=== PATIENT | male | born 1975 | race Caucasian/White ===

== ENCOUNTER 2017-08-22 00:05 | Emergency (ER) | payer SELFPAY ==
[~2017-08-22] VITALS: Ht 182.9 cm; Wt 87.0 kg
[2017-08-22] MEDS ORDERED: IOHEXOL 350 MG/ML 10 ML VIAL (for RAD DIAG) IVCONTRAST ONE (00:06)
[2017-08-22 00:21] VITALS: BP 130/84; PULSE 73; RESP 18; TEMP 97.6; O2SAT 100
[2017-08-22 00:41] LABS: AUTOMATED NEUTROPHIL # 6.4 TH/MM3 (1.8-7.7); BASOPHIL % 0.2 % (0.0-2.0); EOSINOPHIL # 0.1 TH/MM3 (0-0.4); HEMATOCRIT 41.1 % (39.0-51.0); HEMOGLOBIN 14.5 GM/DL (13.0-17.0); LYMPH % 11.2 % (9.0-44.0); LYMPHOCYTE # 0.9 TH/MM3 (1.0-4.8); MEAN CELL VOLUME 90.7 FL (80.0-100.0); MEAN CORPUSCULAR HGB CONC 35.3 % (32.0-36.0); MEAN PLATELET VOLUME 8.9 FL (7.0-11.0); MONOCYTE # 0.7 TH/MM3 (0-0.9); NEUT % 78.6 % (16.0-70.0); PLATELET COUNT 174 TH/MM3 (150-450); RED BLOOD COUNT 4.53 MIL/MM3 (4.50-5.90); RED CELL DISTRIBUTION WIDTH 14.1 % (11.6-17.2); WHITE BLOOD COUNT 8.1 TH/MM3 (4.0-11.0)
--- NOTE | 2017-08-22 00:44 | RADRPT ---
EXAM DATE: 08/22/2017 12:36 AM EDT AGE/SEX: 41 years / Male INDICATIONS: Left rib pain from sneezing. CLINICAL DATA: This is the patient's initial encounter. Patient reports that signs and symptoms have been present for 1 day and indicates a pain score of 10/10. MEDICAL/SURGICAL HISTORY: None. None. COMPARISON: No prior exams available for comparison. FINDINGS: There is no evidence of displaced fracture. No destructive lesions or areas of periosteal thickening are seen. Expiratory view of the chest is negative for pneumothorax. The mediastinal structures ar e midline. CONCLUSION: Negative rib series. No evidence of pneumothorax. Electronically signed by: Javier Crystal MD 08/22/2017 12:43 AM EDT
[2017-08-22] MEDS ORDERED: KETOROLAC TROMETHAMINE 30 MG/ML (IVP) VIAL IV PUSH ONE (00:45)
[2017-08-22] MEDS ORDERED: MORPHINE SULFATE 4 MG/ML INJ IV PUSH ONE (00:45)
[2017-08-22 01:11] LABS: ALBUMIN 3.4 GM/DL (3.4-5.0); ALT (GPT) 52 U/L (12-78); AST (GOT) 28 U/L (15-37); BICARBONATE 27.2 MEQ/L (21.0-32.0); BLOOD UREA NITROGEN 15 MG/DL (7-18); CALCIUM 8.8 MG/DL (8.5-10.1); CHLORIDE 104 MEQ/L (98-107); CREATININE 0.84 MG/DL (0.60-1.30); GLOMERULAR FILTRATION RATE 102 ML/MIN (>89); GLUCOSE,RANDOM 99 MG/DL (74-106); SODIUM (NA) 139 MEQ/L (136-145)
[2017-08-22 01:15] LABS: ALKALINE PHOSPHATASE 73 U/L (45-117); TOTAL BILIRUBIN ADULT 0.6 MG/DL (0.2-1.0); TOTAL PROTEIN 7.4 GM/DL (6.4-8.2); TROPONIN I LESS THAN 0.02 NG/ML (0.02-0.05)
--- NOTE | 2017-08-22 01:31 | PD ---
HPI Chief Complaint: Chest Pain Time Seen by Provider: 00:07 Travel History International Travel<30 days: No Contact w/Intl Traveler<30days: No Traveled to known affect area: No History of Present Illness HPI Patient is a 41 year old male who comes in complaining of left sided chest pain. He says a few hours ago he coughed and felt a pop to his ribs. He says since then he has had severe pain and some SOB. He denies nausea or vomiting. He denies fever or chills. He was in his usual state of health prior to this episode starting. He has not taken anything for the pain. He is a smoker, but has no medical problems. Severity is moderate. [facility] Past Medical History Medical History: Denies Significant Hx Diminished Hearing: No Past Surgical History Surgical History: No Previous Surgery Social History Alcohol Use: No Tobacco Use: Yes Substance Use: No Allergies-Medications (Allergen,Severity, Reaction): Coded Allergies: No Known Allergies (Unverified , 08/22/17) Reported Meds & Prescriptions Reported Meds & Active Scripts Active No Active Prescriptions or Reported Medications Review of Systems Except as stated in HPI: all other systems reviewed are Neg General / Constitutional: No: Fever, Chills HENT: No: Headaches, Lightheadedness Cardiovascular: Positive: Chest Pain or Discomfort Respiratory: Positive: Shortness of Breath Gastrointestinal: No: Nausea, Vomiting Musculoskeletal: No: Myalgias, Edema Skin: No Rash, No Change in Pigmentation Neurologic: No: Weakness, Dizziness Physical Exam Narrative GENERAL: Awake and alert, in no acute distress. SKIN: Focused skin assessment warm/dry. HEAD: Atraumatic. Normocephalic. EYES: Pupils equal and round. No scleral icterus. ENT: Mucous membranes pink and moist. NECK: Trachea midline. No JVD. CARDIOVASCULAR: Regular rate and rhythm. No murmur appreciated. Tender to palpation of the left lateral chest wall. RESPIRATORY: No accessory muscle use. Clear to auscultation. Breath sounds equal bilaterally. GASTROINTESTINAL: Abdomen soft, non-tender, nondistended. MUSCULOSKELETAL: No obvious deformities. No clubbing. No cyanosis. No edema. NEUROLOGICAL: Awake and alert. No obvious cranial nerve deficits. Motor grossly within normal limits. Normal speech. PSYCHIATRIC: Appropriate mood and affect; insight and judgment normal. Data Data Last Documented VS Vital Signs Date Time Temp Pulse Resp B/P (MAP) Pulse Ox O2 Delivery O2 Flow Rate FiO2 08/22/17 00:26 73 08/22/17 00:21 97.6 18 130/84 (99) 100 Orders Orders Iv Access Insert/Monitor (08/22/17 00:07) Complete Blood Count With Diff (08/22/17 00:07) Comprehensive Metabolic Panel (08/22/17 00:07) Ribs, Uni (W/Exp Cxr-Min 3vw) (08/22/17 ) D-Dimer (08/22/17 00:07) Troponin I (08/22/17 00:07) Ketorolac Inj (Toradol Inj) (08/22/17 00:45) Morphine Inj (Morphine Inj) (08/22/17 00:45) Ct Pulmonary Angiogram (08/22/17 00:53) Iohexol 350 Inj (Omnipaque 350 Inj) (08/22/17 00:06) Resp Incentive Spirometry (08/22/17 ) Labs Laboratory Tests Test 08/22/17 00:20 08/22/17 00:44 White Blood Count 8.1 TH/MM3 Red Blood Count 4.53 MIL/MM3 Hemoglobin 14.5 GM/DL Hematocrit 41.1 % Mean Corpuscular Volume 90.7 FL Mean Corpuscular Hemoglobin 32.0 PG Mean Corpuscular Hemoglobin Concent 35.3 % Red Cell Distribution Width 14.1 % Platelet Count 174 TH/MM3 Mean Platelet Volume 8.9 FL Neutrophils (%) (Auto) 78.6 % Lymphocytes (%) (Auto) 11.2 % Monocytes (%) (Auto) 9.0 % Eosinophils (%) (Auto) 1.0 % Basophils (%) (Auto) 0.2 % Neutrophils # (Auto) 6.4 TH/MM3 Lymphocytes # (Auto) 0.9 TH/MM3 Monocytes # (Auto) 0.7 TH/MM3 Eosinophils # (Auto) 0.1 TH/MM3 Basophils # (Auto) 0.0 TH/MM3 CBC Comment DIFF FINAL Differential Comment D-Dimer Quantitative (PE/DVT) 0.94 MG/L FEU Blood Urea Nitrogen 15 MG/DL Creatinine 0.84 MG/DL Random Glucose 99 MG/DL Total Protein 7.4 GM/DL Albumin 3.4 GM/DL Calcium Level 8.8 MG/DL Alkaline Phosphatase 73 U/L Aspartate Amino Transf (AST/SGOT) 28 U/L Alanine Aminotransferase (ALT/SGPT) 52 U/L Total Bilirubin 0.6 MG/DL Sodium Level 139 MEQ/L Potassium Level 4.4 MEQ/L Chloride Level 104 MEQ/L Carbon Dioxide Level 27.2 MEQ/L Anion Gap 8 MEQ/L Estimat Glomerular Filtration Rate 102 ML/MIN Troponin I LESS THAN 0.02 NG/ML MDM Medical Decision Making Medical Screen Exam Complete: Yes Emergency Medical Condition: Yes Medical Record Reviewed: Yes Interpretation(s) ECG shows NSR at a rate of 71, no ST elevation or depression Differential Diagnosis Pneumothorax versus ACS versus PE versus rib fracture Narrative Course Patient is a 41-year-old male comes in complaining of left-sided chest pain. Exam shows tenderness to the chest wall. IV established, labs sent. Labs show an elevated d-dimer, no other acute abnormalities. Chest x-ray shows no evidence of fracture or pneumothorax. CTA of the chest performed shows no evidence of PE, but he does have 1/7 rib fracture. Last [address] Angiography 08/22/17 0053 Signed Impressions: CONCLUSION: 1. Left seventh rib fracture. No evidence of pulmonary embolism. Ribs X-Ray 08/22/17 0000 Signed Impressions: CONCLUSION: Negative rib series. No evidence of pneumothorax. Patient given pain medicine. He will be discharged with an incentive spirometer as well as a prescription for pain medicine. Advised to ensure that he takes deep breaths to prevent pneumonia. Advised follow-up with a primary care doctor. Advised return to the ED as needed for any worsening symptoms. Diagnosis Primary Impression: Rib fracture Qualified Codes: S22.32XA - Fracture of one rib, left side, initial encounter for closed fracture Patient Instructions: General Instructions, Rib Fracture (ED) Additional Instructions: Use the incentive spirometer several times a day. Take pain medicine as needed. Follow-up with a primary doctor. Return to the ED as needed for any worsening symptoms. Scripts Oxycodone-Acetaminophen (Percocet) 5-325 mg Tab 1 TAB PO Q6H Y for PAIN, #15 TAB 0 Refills Prov: Chelo Dumont MD 08/22/17 Disposition: 01 DISCHARGE HOME Condition: Stable Cheol Dumont MD Aug 22, 2017 01:31
--- NOTE | 2017-08-22 02:10 | RADRPT ---
EXAM DATE: 08/22/2017 1:54 AM EDT AGE/SEX: 41 years / Male INDICATIONS: Chest pain with shortness of breath. CLINICAL DATA: This is the patient's initial encounter. Patient reports that signs and symptoms have been present for 1 day and indicates a pain score of 7/10. MEDICAL/SURGICAL HISTORY: . . RADIATION DOSE: 8.98 CTDI (mGy) COMPARISON: No prior exams available for comparison. TECHNIQUE: Volumetric scanning was performed using a multi-row detector CT scanner during bolus infu dread of 70 ml Omnipaque 350 (iohexol) nonionic water-soluble contrast as a single exam dose. The megan a was post processed with a variety of visualization algorithms including full volume maximum intensi ty projection and sliding thin slab reformation. Using automated exposure control and adjustment of the mA and/or kV according to patient size, radiation dose was kept as low as reasonably achievable t o obtain optimal diagnostic quality images. FINDINGS: Pulmonary Arteries: No filling defects are seen in the pulmonary arteries out to the subsegmental ve ssels. The left and right pulmonary arteries are normal in diameter. Lung: No infiltrates seen. Effusion: None. Mediastinum: No evidence of mediastinal or hilar adenopathy. Other: The axilla is unremarkable. Left seventh rib fracture. CONCLUSION: 1. Left seventh rib fracture. No evidence of pulmonary embolism. Electronically signed by: Javier Crystal MD 08/22/2017 2:08 AM EDT
[2017-08-22] MEDS ORDERED: PERC5TAB12 PO (04:20)
[2017-08-22 06:47] VITALS: BP 125/64
--- NOTE | 2017-08-22 23:02 | EKG ---
Date Performed: 08/22/2017 Time Performed: 00:06:02 PTAGE: 41 years EKG: Sinus rhythm WITH SINUS ARRHYTHMIA NORMAL ECG INTERPRETATION BASED ON A DEFAULT AGE OF 42 YEARS NO PREVIOUS TRACING DOCTOR: Kim Gastelum Interpretating Date/Time 08/22/2017 22:55:19
== END 2017-08-22 07:15 | disposition home or self-care (01) ==
LOC: NEPE 00:05
DX: S22.32XA Fracture of one rib, left side, initial encounter for closed fracture (principal); R06.02 Shortness of breath; X58.XXXA Exposure to other specified factors, initial encounter; Z72.0 Tobacco use
CPT/HCPCS: 71101; 71275; 80053; 84484; 85025; 85379; 93005; 96374; 96375; 99285; J1885; J2270; Q9967